=== PATIENT | male | born 1995 | race African-American/Black ===

== ENCOUNTER 2019-11-11 10:31 | Emergency (ER) | payer MEDICAID ==
[~2019-11-11] VITALS: Ht 195.6 cm; Wt 95.5 kg
[2019-11-11 10:50] VITALS: Ht 195.6 cm; Wt 95.5 kg
[2019-11-11] MEDS ORDERED: ARTHROTEC EC 71 EACH PO (16:19)
[2019-11-11 16:30] VITALS: BP 89/55
== END 2019-11-11 16:31 | disposition home or self-care (01) ==
LOC: D.ER 10:31
DX: S39.012A Strain of muscle, fascia and tendon of lower back, initial encounter (principal); X58.XXXA Exposure to other specified factors, initial encounter; Y93.9 Activity, unspecified; Y92.9 Unspecified place or not applicable; Y99.0 Civilian activity done for income or pay